=== PATIENT | female | born 2000 | race Caucasian/White ===

== ENCOUNTER 2021-03-27 09:00 | Emergency (ER) | payer OTHER ==
[~2021-03-27] VITALS: Ht 157.5 cm; Wt 64.0 kg
[2021-03-27] MEDS ORDERED: PREN200C PO (09:09)
[2021-03-27] MEDS ORDERED: ACETAMINOPHEN 500 MG TAB PO ONE (09:35)
[2021-03-27 10:44] VITALS: BP 110/55
== END 2021-03-27 11:19 | disposition home or self-care (01) ==
LOC: M ED 09:00
DX: O98.512 Other viral diseases complicating pregnancy, second trimester (principal); U07.1 COVID-19

== ENCOUNTER 2021-06-18 22:31 | Outpatient (CLI) | payer OTHER ==
[~2021-06-18] VITALS: Ht 157.5 cm; Wt 71.5 kg
[~2021-06-18 22:31] MED LIST: PREN200C PO
[2021-06-18 22:53] VITALS: BP 103/51
[2021-06-19 00:07] VITALS: BP 91/52
[2021-06-19 00:47] VITALS: BP 110/64
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
[2021-06-19 04:59] LABS: APPEARANCE, URINE CLEAR (CLEAR); BACTERIA, URINE AUTO 1+ (NEGATIVE); BILIRUBIN, URINE AUTO NEGATIVE (NEGATIVE); BLOOD, URINE BLOOD NEGATIVE (NEGATIVE); COLOR, URINE YELLOW (YELLOW); GLUCOSE, URINE (UA) AUTO 2+ mg/dL (NEGATIVE); KETONE, URINE AUTO TRACE mg/dL (NEGATIVE); LEUKOCYTE ESTERASE, URINE AUTO NEGATIVE (NEGATIVE); NITRITE, URINE AUTO NEGATIVE (NEGATIVE); PROTEIN, URINE AUTO NEGATIVE (NEGATIVE); RBC, URINE AUTO 1 /HPF (0-3); SPECIFIC GRAVITY URINE AUTO 1.012 (1.002-1.035); SQUAMOUS EPITHELIAL CELL UR AU 0 /HPF (0-6); UROBILINOGEN, URINE AUTO 0.2 mg/dL (0.0-2.0); WBC, URINE AUTO 1 /HPF (0-3)
== END 2021-06-19 01:05 | disposition home or self-care (01) ==
LOC: M LDO 22:31
PROVIDERS: ATTEND Obstetrics & Gynecology
DX: O26.893 Other specified pregnancy related conditions, third trimester (principal); Z3A.36 36 weeks gestation of pregnancy; R10.30 Lower abdominal pain, unspecified; O99.343 Other mental disorders complicating pregnancy, third trimester; F41.9 Anxiety disorder, unspecified; F32.9 Major depressive disorder, single episode, unspecified; O99.353 Diseases of the nervous system complicating pregnancy, third trimester; G43.909 Migraine, unspecified, not intractable, without status migrainosus; O99.013 Anemia complicating pregnancy, third trimester; D64.9 Anemia, unspecified; Z62.810 Personal history of physical and sexual abuse in childhood
CPT/HCPCS: 59025; 81001; G0378; G0463

== ENCOUNTER 2021-07-17 01:02 | Outpatient (CLI) | payer OTHER ==
[~2021-07-17] VITALS: Ht 157.5 cm; Wt 75.9 kg
[2021-07-17 02:06] LABS: APPEARANCE, URINE CLEAR (CLEAR); BACTERIA, URINE AUTO 1+ (NEGATIVE); BILIRUBIN, URINE AUTO NEGATIVE (NEGATIVE); BLOOD, URINE BLOOD NEGATIVE (NEGATIVE); COLOR, URINE STRAW (YELLOW); GLUCOSE, URINE (UA) AUTO NEGATIVE (NEGATIVE); KETONE, URINE AUTO NEGATIVE (NEGATIVE); LEUKOCYTE ESTERASE, URINE AUTO 1+ (NEGATIVE); NITRITE, URINE AUTO NEGATIVE (NEGATIVE); PROTEIN, URINE AUTO NEGATIVE (NEGATIVE); RBC, URINE AUTO 1 /HPF (0-3); SPECIFIC GRAVITY URINE AUTO 1.005 (1.002-1.035); SQUAMOUS EPITHELIAL CELL UR AU 2 /HPF (0-6); TRANSITIONAL EPITHELIAL AUTO <1 /HPF; UROBILINOGEN, URINE AUTO 0.2 mg/dL (0.0-2.0); WBC, URINE AUTO 8 /HPF (0-3)
[2021-07-17] MEDS ORDERED: ACETAMINOPHEN 500 MG TAB PO ONE (02:10)
[2021-07-17] MEDS ORDERED: FOSFOMYCIN TROMETHAMINE 3 GM POWDER PACKET (MONUROL) PO ONE (02:15)
--- NOTE | 2021-07-17 03:21 | IPNPDOC ---
Text Note Date of Service The patient was seen on 07/17/21. NOTE Chief Complaint: Ms. Sheldon is a 21 year old at 40+4 weeks gestation presenting to L&D triage for complaints of contractions. Patient presents: spouse HPI: Reports contractions started Sunday evening and increased to every 5 minutes around 2300. States they are painful. Denies any intercourse, but does report orgasms by self to attempt labor. Is reporting increased frequency of urination with burning with urination. Denies any leaking of fluid, vaginal bleeding. Reporting good movement. Denies any headaches, nausea, vomiting, RUQ pain. Denies any vaginal discharge, vaginal itching/burning. Objective: VS: BP initially elevated with repeat 138/73, P76, RR 118, T 99.8 General: Alert. Well-appearing, in no acute distress. Minimal breathing through contractions. PSYCH: Well groomed. Appropriate affect, normal mood. Conversed easily. Neuro: Oriented to time, place, and person. RESP: Unlabored breathing. CV: Normal RRR, no murmur, c/w normal . No edema to bilateral upper and lower extremities. ABD: Soft, non-tender. MSK: legs without edema bilaterally. Normal mvmt all extremities. Steady gait. Judy from a seated position without assistance. Obstetrical: FHR: 125 with moderate variability and accelerations present. No decels. Contractions every 5-6 min, lasting 60-80 sec, moderate to palpation. SVE: 1/thick/high, posterior/firm. Pt has difficulty with vaginal exams. External Genitalia showed no abnormalities, Palliative Nurse present for exam: FRANCIS Rowe L&D Laboratory Tests 07/17/21 01:51: Urine Color STRAW, Urine Appearance CLEAR, Urine pH 6.0, Urine Specific [place] 1.005, Urine Protein NEGATIVE, Urine Glucose (Auto)(UA) NEGATIVE, Urine Ketones (Auto) NEGATIVE, Urine Blood NEGATIVE, Urine Nitrite NEGATIVE, Urine Bilirubin NEGATIVE, Urine Urobilinogen 0.2, Urine Leukocyte Esterase (Auto) 1+H, Urine WBC (Auto) 8H, Urine RBC (Auto) 1, Urine Hyaline Casts (Auto) 0, Urine Bacteria (Auto) 1+H, Urine Squamous Epithelial Cells 2, Urine Transitional Epithelial Cells <1, Urine Sperm (Auto) A/P 21yo G 1 P 0 at 40+4 wks gestation evaluated in L&D triage for complaints of contractions. VSS and normal Benign physical exam Reactive NST, reassuring SVE: 1/thick/high, not in active labor. Labs: UA with bacteria and leuk esterase. Given symptoms, will treat for UTI. Pt with anticipate delivery within the week, so will avoid macrobid. Fosfomycin 3gm given in L&D along with tylenol 1000mg PO for pain. Plan: Educated on routine OB return precautions and warning signs. Follow up on [facility] as previously scheduled. Has IOL scheduled this Sunday. YVONNE CASTELLON CNM Jul 17, 2021 03:21
== END 2021-07-17 02:48 | disposition home or self-care (01) ==
LOC: M LDO 01:02
PROVIDERS: ATTEND Advanced Practice Midwife
DX: O23.43 Unspecified infection of urinary tract in pregnancy, third trimester (principal); Z3A.40 40 weeks gestation of pregnancy; O48.0 Post-term pregnancy

== ENCOUNTER 2021-07-17 07:30 | Inpatient (IN) | payer OTHER ==
[~2021-07-17] VITALS: Ht 157.5 cm; Wt 75.6 kg
[2021-07-17] VITALS (12 sets, daily range): BP systolic 100–136; BP diastolic 55–82
[2021-07-17] MEDS ORDERED: OXYTOCIN DRIP 30 UNITS in IV 1 EA IV PRN ×4 (09:00)
[2021-07-17] MEDS ORDERED: METHYLERGONOVINE MALEATE 0.2 MG/ML VIAL (J2210) IM PRN (09:00)
[2021-07-17] MEDS ORDERED: BUTORPHANOL 2 MG/ML INJ (J0595) IV ONE (09:00)
[2021-07-17] MEDS ORDERED: PROMETHAZINE INJ 25 MG/ML VIAL (J2550) IV ONE (09:00)
[2021-07-17] MEDS ORDERED: CARBOPROST TROMETHAMINE 250 MCG/ML AMP IM PRN (09:00)
[2021-07-17] MEDS ORDERED: TRANEXAMIC ACID INJection 1,000 MG in NS 100 ML IV PRN (09:00)
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
[2021-07-17] MEDS ORDERED: LR 1,000 ML IV SCH (09:20)
[2021-07-17] MEDS ORDERED: OXYTOCIN DRIP 30 UNITS in IV 1 EA IV SCH (09:25)
[2021-07-17 10:06] LABS: HEMATOCRIT 32.2 % (36.0-47.0); HEMOGLOBIN 10.9 g/dl (12.0-15.5); MEAN CORPUSCULAR HGB CONC 33.9 g/dl (32.0-36.5); MEAN CORPUSCULAR VOLUME 82.8 fl (80.0-96.0); PLATELET COUNT, AUTOMATED 224 10^3/uL (150-450); RED BLOOD COUNT 3.89 10^6/uL (4.00-5.40); WHITE BLOOD COUNT 13.6 10^3/uL (4.0-10.0)
[2021-07-17] MEDS ORDERED: FENTANYL 2MCG/ML ROPIVACAINE 0.2% IN 0.9% NACL 100ML IVBAG As Ordered ONE ×2 (11:29→19:41)
[2021-07-17] MEDS: FENTANYL/ROPIVACAINE/NACL BAG 100 ML EPIDURAL SCH ×2 (11:53→19:49)
[2021-07-17] MEDS ORDERED: ePHEDrine SULFATE 25 MG/5 ML(5MG/ML) SYRINGE IV PRN (13:20)
[2021-07-17] MEDS ORDERED: EPIDURAL/PCA KEYS XX PRN (13:20)
[2021-07-17] MEDS ORDERED: EPIDURAL COMMENT XX SCH (13:20)
[2021-07-17] MEDS ORDERED: NALOXONE INJ 0.4MG/1ML VIAL (J2310 PER 1MG) IV PRN (13:20)
[2021-07-17] MEDS ORDERED: REFRIGERATOR IV KEYS XX PRN (13:20)
[2021-07-17] MEDS ORDERED: ONDANSETRON 4MG/2ML VIAL IV PRN (13:20)
[2021-07-17] MEDS ORDERED: diphenhydrAMINE 50MG/ML VIAL (J1200) IV PRN (13:20)
[2021-07-17] MEDS ORDERED: LACTATED RINGER'S 1000 ML IV PRN (13:20)
--- NOTE | 2021-07-17 13:52 | IPNPDOC ---
Obstetrical Progress Note Date of Service Jul 17, 2021 Subjective Patient is about ready to take a nap. Comfortable with epidural. Denies complaints. Objective Vital Signs Date Time Temp Pulse Resp B/P (MAP) Pulse Ox O2 Delivery O2 Flow Rate FiO2 07/17/21 09:59 80 16 100/55 (70) Room Air 07/17/21 07:50 99.3 Assessment Heart Rate Tracing: Category I Tocometer Contractions: Yes Frequency: regular, every 2-5 min. Sterile Vaginal Examination Dilation: 3 cm Assessment and Plan Status: Reassuring Group B Streptococcus: Negative Anticipate: Vaginal Delivery Additional Comments Patient was checked by nursing and found to be unchanged since admission. Discussed augmentation with pitocin and patient is amenable. Routine intrapartum care titrate pitocin reevaluate in 6 hours or sooner ELVIA Simms DO Jul 17, 2021 13:52
[2021-07-17] MEDS ORDERED: OXYTOCIN 30 UNITS IN 0.9% NaCl 500ML IV BAG (J2590) As Ordered ONE (15:45)
--- NOTE | 2021-07-17 18:24 | IPNPDOC ---
Obstetrical Progress Note Date of Service Jul 17, 2021 Subjective Patient comfortable with epidural. Denies complaints. Objective Vital Signs Date Time Temp Pulse Resp B/P (MAP) Pulse Ox O2 Delivery O2 Flow Rate FiO2 07/17/21 09:59 80 16 100/55 (70) Room Air 07/17/21 07:50 99.3 Assessment Heart Rate (FHR): 145 Variability: Moderate Accelerations: Positive Decelerations: None Heart Rate Tracing: Category I Tocometer Contractions: Yes Frequency: regular, every 2-5 min. Sterile Vaginal Examination Dilation: 7 cm Postion/Presentation: Cephalic presentation Assessment and Plan Status: Reassuring Group B Streptococcus: Negative Anticipate: Vaginal Delivery Additional Comments Per nursing pt has progressed to 7cm. Has occasional FH tracing decelerations but overall reassuring tracing and currently category I. Pitocin is at 2, maternal vitals within limits. She is likely ruptured with a forebag. If labor progress slows can consider rupture of forebag. Will continue to monitor, deliver. reevaluate labor in 2-4 hours, sooner prn routine intrapartum care ELVIA FITZGERALD DO Jul 17, 2021 18:24
--- NOTE | 2021-07-17 22:35 | IPNPDOC ---
Obstetrical Progress Note Date of Service Jul 17, 2021 Subjective Pt comfortable with epidural, feeling pressure with some contractions, not consistently. Objective Vital Signs Date Time Temp Pulse Resp B/P (MAP) Pulse Ox O2 Delivery O2 Flow Rate FiO2 07/17/21 09:59 80 16 100/55 (70) Room Air 07/17/21 07:50 99.3 Assessment Heart Rate (FHR): 145 Variability: Moderate Accelerations: Positive Decelerations: None Heart Rate Tracing: Category I Tocometer Contractions: Yes Frequency: every 2-5 min. Sterile Vaginal Examination Dilation: 8 cm Assessment and Plan Status: Reassuring Group B Streptococcus: Negative Anticipate: Vaginal Delivery Additional Comments Category I tracing continuing to progress, now 8cm. Continuing on pit of 2. Mother afebrile, normotensive. Routine intrapartum care. Reevaluate labor in 4 hours or sooner ELVIA Simms DO Jul 17, 2021 22:35
--- NOTE | 2021-07-17 23:47 | IPNPDOC ---
Obstetrical Progress Note Date of Service Jul 17, 2021 Subjective Pt comfortable with epidural, feeling pressure with contractions. Denies other complaints. Objective Vital Signs Date Time Temp Pulse Resp B/P (MAP) Pulse Ox O2 Delivery O2 Flow Rate FiO2 07/17/21 09:59 80 16 100/55 (70) Room Air 07/17/21 07:50 99.3 Assessment Heart Rate (FHR): 150 Variability: Moderate Accelerations: Positive Decelerations: None Heart Rate Tracing: Category I Tocometer Contractions: Yes Frequency: every 2-5 min. 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 , rupture of membranes performed with large return of clear fluid. It is possible that this was a forebag as patient reports leaking prior; however I will now consider her ruptured. Revaluate labor in 2-4 hours or sooner prn. Routine intrapartum care. ELVIA FITZGERALD DO Jul 17, 2021 23:47
[2021-07-18] VITALS (25 sets, daily range): BP systolic 92–158; BP diastolic 51–109
--- NOTE | 2021-07-18 03:46 | IPNPDOC ---
Obstetrical Progress Note Date of Service Jul 18, 2021 Subjective Patient currently pushing, pushing started at 0230. Objective Vital Signs Date Time Temp Pulse Resp B/P (MAP) Pulse Ox O2 Delivery O2 Flow Rate FiO2 07/17/21 09:59 80 16 100/55 (70) Room Air 07/17/21 07:50 99.3 Assessment Heart Rate (FHR): 150 Variability: Moderate Accelerations: Positive Decelerations: Late, Intermittent Heart Rate Tracing: Category II Tocometer Contractions: Yes Frequency: regular, every 2-5 min. Sterile Vaginal Examination Dilation: complete Effacement (%): 100% Station: +1 Postion/Presentation: Cephalic presentation Assessment and Plan Status: Reassuring Group B Streptococcus: Negative Anticipate: Vaginal Delivery Additional Comments Has been pushing for about an hour, station currently +1, making slow progress. Suboptimal effort at this time, multiple nurses at bedside assisting in coaching and encouragement. Maternal vitals within normal limits, FHR reassuring. Continue pushing reevaluate in one hour or sooner prn routine intrapartum care ELVIA FITZGERALD DO Jul 18, 2021 03:46
[2021-07-18 05:53] LABS: CORD GAS ABE V -6.5; CORD GAS HCO3 V 17.6 MEQ/L; CORD GAS O2 SAT V 81.1 %; CORD GAS PCO2 V 31.3 mmHg; CORD GAS PH V 7.368 UNITS; CORD GAS SBC V 18.9 MEQ/L; CORD GAS TCO2 V 18.6 MEQ/L
[2021-07-18 05:55] LABS: CORD GAS HCO3 A 17.4 MEQ/L; CORD GAS O2 SAT A 42.2 %; CORD GAS PCO2 A 43.5 mmHg; CORD GAS PH A 7.219 UNITS; CORD GAS SBC A 15.5 MEQ/L; CORD GAS TCO2 A 18.7 MEQ/L
[2021-07-18] MEDS: ACETAMINOPHEN 500 MG TAB PO SCH ×4 (06:00→23:22)
[2021-07-18] MEDS ORDERED: LR 1,000 ML IV SCH (06:00)
[2021-07-18] MEDS ORDERED: METHYLERGONOVINE MALEATE 0.2 MG TAB PO PRN (06:00)
[2021-07-18] MEDS ORDERED: RHOGAM 300 MCG (1500 IU) INJ (J2790) IM SCH (06:00)
[2021-07-18] MEDS ORDERED: PROMETHAZINE 25 MG TAB PO PRN (06:00)
[2021-07-18] MEDS ORDERED: ONDANSETRON 4MG/2ML VIAL IV PRN (06:00)
[2021-07-18] MEDS ORDERED: MEASLES,MUMPS,RUBELLA VACCINE INJ (MMR-II) (90707) SC SCH (06:00)
--- NOTE | 2021-07-18 06:16 | DNPDOC ---
[facility] Delivery Note Delivery Note DATE OF DELIVERY: [id number] PREDELIVERY DIAGNOSIS: 40+4 weeks' gestation and labor. POST DELIVERY DIAGNOSIS: Delivered. PROCEDURE: Spontaneous vaginal delivery MACHINE TANK OPERATOR: Elvia Wahl DO ANESTHESIA: epidural ESTIMATED BLOOD LOSS: 300 mL. FINDINGS: 8 pound 10 ounce 3910g , Score 8/9 DELIVERY SUMMARY: Zamzam Sheldon is a 21-year-old 1 now para 1001 who was admitted to labor and delivery for labor. I was called to the room as she was C/C/+3; I had previously been pushing with the patient intermittently. In general maternal pushing effort was suboptimal and progress was slow yet persistent. The heart rate tracing remained category I throughout [facility]. The baby delivered about to the browline and the mother repeatedly asked for assistance in delivery due to slowed progress and exhaustion. I inserted two fingers rectally and located the baby's chin. With each contraction gentle outward pressure was applied until delivery of the head. The head restituted SONYA. Initially I was concerned for a shoulder dystocia however the culprit was a body dystocia and lack of maternal pushing effort. I was able to deliver both shoulders with gentle directed traction. I placed finger around each armpit and extracted the corpus in this manner. The was placed on the maternal abdomen. THe cord was clamped and cut. Good cry was noted. The placenta was then delivered intact and uterine massage performed with fundus and lower uterine segment firm. Inspection of the perineum revealed no tears. The mother and baby were left in good condition. ELVIA WAHL DO Jul 18, 2021 06:16
[2021-07-18] MEDS: PRENATAL VITAMINS CHEWABLE TABLET PO SCH (07:33)
[2021-07-18] MEDS: IBUPROFEN 800 MG TAB PO SCH ×3 (07:33→21:36)
[2021-07-18] MEDS ORDERED: LR 1,000 ML IV ONE (08:40)
[2021-07-18] MEDS: DOCUSATE SODIUM 100MG CAPSULE PO PRN ×2 (09:11→09:18)
[2021-07-18] MEDS: DIBUCAINE 1% OINTMENT 30GM TOP PRN ×2 (09:11→09:19)
--- NOTE | 2021-07-18 09:20 | IPNPDOC ---
Obstetrical Progress Note Date of Service Jul 18, 2021 Subjective 21 yo s/p this morning becomes lightheaded, dizzy, nausea, and fee ling faint when she stands to use the restroom. EBL from delivery 300 ml. She reports that bleeding has been normal. She denies chest pain, RUQ pain, and visual changes. Objective Laboratory Tests 07/17/21 09:31 Vital Signs Date Time Temp Pulse Resp B/P (MAP) Pulse Ox O2 Delivery O2 Flow Rate FiO2 07/18/21 08:32 134 92/51 (65) 07/18/21 07:38 97.7 16 07/17/21 09:59 Room Air Orthostatic BPs: Layin/62 Pulse: 70 Sittin/67 Pulse: 131 Standin/51 Pulse: 134 Assessment and Plan Additional Comments Assessment: Day of delivery Orthostatic hypotension Plan: Await stat CBC, CMP Bolus 1 liter LR Type and Crossmatch for 2 units Consider blood transfusion Dr. Gutiérrez updated on patient status and agrees with plan. JUAN RAJAN CNM Jul 18, 2021 09:20
[2021-07-18 09:25] LABS: HEMOGLOBIN 10.2 g/dl (12.0-15.5); MEAN CORPUSCULAR HEMOGLOBIN 28.2 pg (27.0-33.0); MEAN CORPUSCULAR HGB CONC 32.9 g/dl (32.0-36.5); MEAN CORPUSCULAR VOLUME 85.6 fl (80.0-96.0); PLATELET COUNT, AUTOMATED 217 10^3/uL (150-450); RED BLOOD COUNT 3.62 10^6/uL (4.00-5.40); WHITE BLOOD COUNT 21.4 10^3/uL (4.0-10.0)
[2021-07-18 10:02] LABS: BLOOD UREA NITROGEN 6 MG/DL (7-18); CALCIUM LEVEL 8.8 MG/DL (8.5-10.1); CARBON DIOXIDE LEVEL 20 MEQ/L (21-32); CHLORIDE LEVEL 112 MEQ/L (98-107); CREATININE FOR GFR 1.19 MG/DL (0.55-1.30); GLUCOSE, FASTING 198 MG/DL (70-100); POTASSIUM SERUM 3.8 MEQ/L (3.5-5.1); SODIUM LEVEL 142 MEQ/L (136-145)
[2021-07-18 10:03] LABS: ALBUMIN 2.2 GM/DL (3.2-5.2); ALT/SGPT 21 U/L (12-78); BILIRUBIN,TOTAL 0.5 MG/DL (0.2-1.0); TOTAL PROTEIN 5.1 GM/DL (6.4-8.2)
--- NOTE | 2021-07-18 10:40 | IPNPDOC ---
Obstetrical Progress Note Date of Service Jul 18, 2021 Subjective 21 yo s/p this morning has now received 2 liters of LR and is now able to stand and walk without assistance without feeling lightheadedness, dizzy, and faint. BP is mildly elevated and she has had mildly elevated BP during course of labor and has ruled in for GHTN. Labs have been WNL. Objective Vital Signs Date Time Temp Pulse Resp B/P (MAP) Pulse Ox O2 Delivery O2 Flow Rate FiO2 07/18/21 09:30 97.7 66 16 128/60 (82) 99 07/17/21 09:59 Room Air Assessment and Plan Additional Comments Assessment: S/P Day of Delivery GHTN Plan: Transfer to Monitor VS every [address] Gutiérrez updated on patient status and is agreeable to plan JUAN RAJAN CNM Jul 18, 2021 10:40
--- NOTE | 2021-07-18 17:57 | IPNPDOC ---
Progress Note Date of Service: Jul 18, 2021 Progress Note Reviewed labs, patient is meeting criteria for pre-eclampsia with severe features (GHTN + Cr 1.19). At this time she denied n/v/d, cp, sob, [place], visual changes, f/c, RUQ pain, urinary sx. She is now normotensive. I discussed the recommendation of magnesium for seizure prevention for the first 24 hours after delivery. She declines this and asked for her lab to be repeated first, I explained that this is against my medical advice, although given she is asymptomatic with normal BPs this is not totally unreasonable. Will repeat pre-e labs STAT and put patient on seizure precautions and a clear liquid diet in the interm. VS, I&O, 24H, Fishbone Vital Signs/I&O Vital Signs Date Time Temp Pulse Resp B/P (MAP) Pulse Ox O2 Delivery O2 Flow Rate FiO2 07/18/21 11:11 97.2 70 18 111/57 (75) 99 Room Air I&O- Last 24 Hours up to 6 AM 07/18/21 06:00 Intake Total 2855 ml Output Total 1284 ml Balance 1571 ml Laboratory Data 24H LABS Laboratory Tests 2 07/18/21 05:44: Cord Arterial Blood pH 7.219, Cord Arterial Blood PCO2 43.5, Cord Arterial Blood PO2 20.0, Cord Arterial Blood HCO3 17.4, Cord Arterial Blood Total CO2 18.7, Cord Arterial Blood Base Excess -10.0, Cord Arterial Base Excess (Standard 15.5, Cord Arterial Bld Oxygen Saturation 42.2 07/18/21 05:46: Cord Venous Blood pH 7.368, Cord Venous Blood PCO2 31.3, Cord Venous Blood PO2 36.0, Cord Venous Blood HCO3 17.6, Cord Venous Blood Total CO2 18.6, Cord Venous Base Excess (Actual) -6.5, Cord Venous Base Excess (Standard) 18.9, Cord Venous Blood Oxygen Saturation 81.1 07/18/21 09:20: Anion Gap 10, Calcium Level 8.8, Total Bilirubin 0.5, Aspartate Amino Transf (AST/SGOT) 34, Alanine Aminotransferase (ALT/SGPT) 21, Alkaline Phosphatase 204H, Total Protein 5.1L, Albumin 2.2L, Albumin/Globulin Ratio 0.8L 07/18/21 09:21: Nucleated Red Blood Cells % (auto) 0.0 CBC/BMP Laboratory Tests 07/18/21 09:20 07/18/21 09:21 MELISSA LOPEZ DO Jul 18, 2021 17:57
[2021-07-18 18:39] LABS: HEMATOCRIT 25.7 % (36.0-47.0); HEMOGLOBIN 8.5 g/dl (12.0-15.5); MEAN CORPUSCULAR HEMOGLOBIN 28.1 pg (27.0-33.0); MEAN CORPUSCULAR HGB CONC 33.1 g/dl (32.0-36.5); MEAN CORPUSCULAR VOLUME 84.8 fl (80.0-96.0); PLATELET COUNT, AUTOMATED 204 10^3/uL (150-450); RED BLOOD COUNT 3.03 10^6/uL (4.00-5.40); WHITE BLOOD COUNT 19.5 10^3/uL (4.0-10.0)
[2021-07-18 19:03] LABS: ALBUMIN 1.8 GM/DL (3.2-5.2); ALT/SGPT 20 U/L (12-78); BILIRUBIN,TOTAL 0.3 MG/DL (0.2-1.0); BLOOD UREA NITROGEN 5 MG/DL (7-18); CALCIUM LEVEL 8.6 MG/DL (8.5-10.1); CARBON DIOXIDE LEVEL 21 MEQ/L (21-32); CHLORIDE LEVEL 113 MEQ/L (98-107); CREATININE FOR GFR 0.89 MG/DL (0.55-1.30); GLUCOSE, FASTING 138 MG/DL (70-100); POTASSIUM SERUM 3.8 MEQ/L (3.5-5.1); SODIUM LEVEL 144 MEQ/L (136-145); TOTAL PROTEIN 4.4 GM/DL (6.4-8.2)
--- NOTE | 2021-07-18 19:56 | IPNPDOC ---
Progress Note Date of Service: Jul 18, 2021 Progress Note On repeat labs Cr improved from 1.19 to 0.89. At this time she still declines magnesium still per RN. Will continue seizure precautions and repeat labs in the AM. VS, I&O, 24H, Kandice Vital Signs/I&O Vital Signs Date Time Temp Pulse Resp B/P (MAP) Pulse Ox O2 Delivery O2 Flow Rate FiO2 07/18/21 18:06 98.2 73 18 104/57 (73) 99 Room Air I&O- Last 24 Hours up to 6 AM 07/18/21 06:00 Intake Total 2855 ml Output Total 1284 ml Balance 1571 ml Laboratory Data 24H LABS Laboratory Tests 2 07/18/21 05:44: Cord Arterial Blood pH 7.219, Cord Arterial Blood PCO2 43.5, Cord Arterial Blood PO2 20.0, Cord Arterial Blood HCO3 17.4, Cord Arterial Blood Total CO2 18.7, Cord Arterial Blood Base Excess -10.0, Cord Arterial Base Excess (Standard 15.5, Cord Arterial Bld Oxygen Saturation 42.2 07/18/21 05:46: Cord Venous Blood pH 7.368, Cord Venous Blood PCO2 31.3, Cord Venous Blood PO2 36.0, Cord Venous Blood HCO3 17.6, Cord Venous Blood Total CO2 18.6, Cord Venous Base Excess (Actual) -6.5, Cord Venous Base Excess (Standard) 18.9, Cord Venous Blood Oxygen Saturation 81.1 07/18/21 09:20: Anion Gap 10, Calcium Level 8.8, Total Bilirubin 0.5, Aspartate Amino Transf (A ST/SGOT) 34, Alanine Aminotransferase (ALT/SGPT) 21, Alkaline Phosphatase 204H, Total Protein 5.1L, Albumin 2.2L, Albumin/Globulin Ratio 0.8L 07/18/21 09:21: Nucleated Red Blood Cells % (auto) 0.0 07/18/21 18:07: Nucleated Red Blood Cells % (auto) 0.0, Anion Gap 10, Calcium Level 8.6, Total Bilirubin 0.3, Aspartate Amino Transf (AST/SGOT) 31, Alanine Aminotransferase (ALT/SGPT) 20, Alkaline Phosphatase 177H, Total Protein 4.4L, Albumin 1.8L, Albumin/Globulin Ratio 0.7L CBC/BMP Laboratory Tests 07/18/21 09:20 07/18/21 09:21 07/18/21 18:07 MELISSA LOPEZ DO Jul 18, 2021 19:56
[2021-07-19 02:00] VITALS: BP 100/54
[2021-07-19 05:30] VITALS: BP 101/62
[2021-07-19] MEDS: ACETAMINOPHEN 500 MG TAB PO SCH ×4 (05:36→23:53)
[2021-07-19] MEDS: IBUPROFEN 800 MG TAB PO SCH ×3 (05:37→21:42)
--- NOTE | 2021-07-19 06:52 | IPNPDOC ---
Progress Note Date of Service: Jul 19, 2021 Day#: 1 Progress Note SUBJECT: Ms. Sheldon is a 21yo PPD1 after a . Her is c/b pre- eclampsia with severe features (Cr 1.19) although she refused magnesium, repeat Cr 0.89. Pre-eclampsia labs otherwise normal. She also had an episode of near syncope and received 2L after delivery, her H/H was 8.5/25 and a repeat CBC is ordered for this morning. She has been ambulating, voiding spontaneously without issue and tolerating regular diet. Breast feeding without issue. Reports lochia is less than a normal period. Patient is ambulating well. Reports some cramping with . Denies any pain. Voiding and passing flatus without difficulty. Denied n/v/d, cp, whitmore, visual changes, abd pain, f/c, urinary sx. She does endorse some mild shortness of breath when ambulates. OBJECTIVE: VITAL SIGNS: Within normal limits, afebrile. Alert and oriented times three. No increased WOB Heart rate: non-tachycardic Abdomen: Fundus firm at U-2. Soft, NTTP. [Minimal] lochia per patient Extrem DTR 2+, no clonus, neg homans ASSESSMENT: Ms. Sheldon is a21yo PPD1 after a . Her is c/b pre-eclampsia with severe features (Cr 1.19) although she refused magnesium, repeat Cr 0.89. Pre-eclampsia labs otherwise normal. She also had an episode of near syncope and received 2L after delivery, her H/H was 8.5/25. Vitals within normal limits (normotensive), afebrile, hemodynamically stable with no evidence of infection. She denied signs or symptoms of pre-eclampsia. She does have some mild SOB with ambulating and a repeat CBC was drawn this morning. PLAN: 1. Discharge to home likely PPD2-3 2. Tylenol and Motrin for pain. 3. Encourage breast feeding and ambulation. 4. Undecided contraception. 5. Routine PP visit in 72h, 7d, and 6 weeks in clinic. 6. Discussed return precautions at length (pre-eclampsia, routine ) and activity limitations (pelvic rest). 7. Follow up on AM labs. VS, I&O, 24H, Fishbone Vital Signs/I&O Vital Signs Date Time Temp Pulse Resp B/P (MAP) Pulse Ox O2 Delivery O2 Flow Rate FiO2 07/19/21 05:30 98.2 70 16 101/62 (75) 99 Room Air I&O- Last 24 Hours up to 6 AM 07/19/21 06:00 Output Total 900 ml Balance -900 ml Laboratory Data 24H LABS Laboratory Tests 2 07/18/21 09:20: Anion Gap 10, Calcium Level 8.8, Total Bilirubin 0.5, Aspartate Amino Transf (AST/SGOT) 34, Alanine Aminotransferase (ALT/SGPT) 21, Alkaline Phosphatase 204H, Total Protein 5.1L, Albumin 2.2L, Albumin/Globulin Ratio 0.8L 07/18/21 09:21: Nucleated Red Blood Cells % (auto) 0.0 07/18/21 18:07: Anion Gap 10, Calcium Level 8.6, Total Bilirubin 0.3, Aspartate Amino Transf (AST/SGOT) 31, Alanine Aminotransferase (ALT/SGPT) 20, Alkaline Phosphatase 177H, Total Protein 4.4L, Albumin 1.8L, Albumin/Globulin Ratio 0.7L, Nucleated Red Blood Cells % (auto) 0.0 CBC/BMP Laboratory Tests 07/18/21 09:20 07/18/21 09:21 07/18/21 18:07 MELISSA LOPEZ DO Jul 19, 2021 06:52
[2021-07-19 08:03] LABS: HEMATOCRIT 24.8 % (36.0-47.0); HEMOGLOBIN 8.3 g/dl (12.0-15.5); MEAN CORPUSCULAR HEMOGLOBIN 28.3 pg (27.0-33.0); MEAN CORPUSCULAR HGB CONC 33.5 g/dl (32.0-36.5); MEAN CORPUSCULAR VOLUME 84.6 fl (80.0-96.0); PLATELET COUNT, AUTOMATED 198 10^3/uL (150-450); RED BLOOD COUNT 2.93 10^6/uL (4.00-5.40); WHITE BLOOD COUNT 14.3 10^3/uL (4.0-10.0)
[2021-07-19 08:33] LABS: ALBUMIN 1.7 GM/DL (3.2-5.2); ALT/SGPT 22 U/L (12-78); BILIRUBIN,TOTAL 0.3 MG/DL (0.2-1.0); BLOOD UREA NITROGEN 6 MG/DL (7-18); CALCIUM LEVEL 8.1 MG/DL (8.5-10.1); CARBON DIOXIDE LEVEL 22 MEQ/L (21-32); CHLORIDE LEVEL 112 MEQ/L (98-107); CREATININE FOR GFR 0.73 MG/DL (0.55-1.30); GLUCOSE, FASTING 71 MG/DL (70-100); POTASSIUM SERUM 3.7 MEQ/L (3.5-5.1); SODIUM LEVEL 143 MEQ/L (136-145); TOTAL PROTEIN 4.3 GM/DL (6.4-8.2)
[2021-07-19] MEDS: PRENATAL VITAMINS CHEWABLE TABLET PO SCH (08:54)
[2021-07-19 10:00] VITALS: BP 122/61
[2021-07-19 14:00] VITALS: BP 134/78
[2021-07-19 18:00] VITALS: BP 126/88
[2021-07-19 22:00] VITALS: BP 132/60
[2021-07-20 02:00] VITALS: BP 115/53
[2021-07-20] MEDS: IBUPROFEN 800 MG TAB PO SCH (05:07)
[2021-07-20] MEDS: ACETAMINOPHEN 500 MG TAB PO SCH ×2 (05:07→12:00)
[2021-07-20 06:00] VITALS: BP 122/56
--- NOTE | 2021-07-20 07:08 | IPNPDOC ---
Progress Note Date of Service: Jul 20, 2021 Progress Note SUBJECT: Ms. Sheldon is a 21yo PPD2 after a . Her is c/b pre- eclampsia with severe features (Cr 1.19) although she refused magnesium, repeat Cr 0.89. Pre-eclampsia labs otherwise normal. She also had an episode of near syncope and received 2L after delivery, her H/H was 8.5/25 and a repeat CBC was stable. She has been ambulating, voiding spontaneously without issue and tolerating regular diet. Breast feeding without issue. Reports lochia is less than a normal period. Patient is ambulating well. Reports some cramping with . Denies any pain. Voiding and passing flatus without difficulty. Denied n/v/d, cp, whitmore, visual changes, abd pain, f/c, urinary sx. Feels well and has no complaints. OBJECTIVE: VITAL SIGNS: Within normal limits, afebrile. Alert and oriented times three. No increased WOB Heart rate: non-tachycardic Abdomen: Fundus firm at U-2. Soft, NTTP. [Minimal] lochia per patient Extrem negative calf tenderness bilaterally ASSESSMENT: Ms. Sheldon is a21yo PPD2 after a . Her is c/b pre-eclampsia with severe features (Cr 1.19) although she refused magnesium, repeat Cr 0.89. Pre-eclampsia labs otherwise normal. She also had an episode of near syncope and received 2L after delivery, her H/H was 8.5/25. Vitals within normal limits (normotensive), afebrile, hemodynamically stable with no evidence of infection. She denied signs or symptoms of pre-eclampsia. PLAN: 1. Discharge to home today 2. Tylenol and Motrin for pain. 3. Encourage breast feeding and ambulation. 4. decline contraception at this time, counseled on close interval . 5. Routine PP visit in 72h, 7d, and 6 weeks in clinic. 6. Discussed return precautions at length (pre-eclampsia, routine ) and activity limitations (pelvic rest). VS, I&O, 24H, Fishbone Vital Signs/I&O Vital Signs Date Time Temp Pulse Resp B/P (MAP) Pulse Ox O2 Delivery O2 Flow Rate FiO2 07/20/21 06:00 97.9 65 18 122/56 (78) 97 Room Air Laboratory Data 24H LABS Laboratory Tests 2 07/19/21 07:26: Nucleated Red Blood Cells % (auto) 0.0, Anion Gap 9, Calcium Level 8.1L, Total Bilirubin 0.3, Aspartate Amino Transf (AST/SGOT) 30, Alanine Aminotransferase (ALT/SGPT) 22, Alkaline Phosphatase 167H, Total Protein 4.3L, Albumin 1.7L, Albumin/Globulin Ratio 0.7L CBC/BMP Laboratory Tests 07/19/21 07:26 ELVIA FITZGERALD DO Jul 20, 2021 06:58
[2021-07-20] MEDS ORDERED: IBUP80TA PO (07:12)
[2021-07-20] MEDS ORDERED: PRENCHW PO (07:12)
[2021-07-20] MEDS ORDERED: DOCU100C16 PO (07:12)
[2021-07-20] MEDS ORDERED: ACET-683 PO (07:12)
[2021-07-20] MEDS: PRENATAL VITAMINS CHEWABLE TABLET PO SCH (08:13)
--- NOTE | 2021-07-21 09:42 | IPN ---
PROGRESS NOTE DATE: 07/19/2021 This patient requested circumcision of her male . After discussing risks and benefits of circumcision, the medical and non-medical indications, penile block and aftercare expressed understanding of penile block, aftercare and bleeding, signed a consent form. All questions were answered. Twenty minute discussion. We await clearance by the heavy equipment supervisor. Onel Edwards OB
== END 2021-07-20 12:55 | disposition home or self-care (01) | DRG 807 ==
LOC: M LDO 07:30 → M LDI 08:53 → M OBS 07-18 10:50
PROVIDERS: ADMIT Obstetrics & Gynecology; ATTEND Obstetrics & Gynecology
PROC: 10E0XZZ Delivery of Products of Conception, External Approach (ICD-10-PCS; principal; 2021-07-18)
DX: O14.24 HELLP syndrome, complicating childbirth (principal); Z37.0 Single live birth; Z3A.40 40 weeks gestation of pregnancy; O75.81 Maternal exhaustion complicating labor and delivery; O48.0 Post-term pregnancy

== ENCOUNTER 2022-08-22 08:23 | Inpatient (IN) | payer OTHER ==
[~2022-08-22] VITALS: Ht 157.5 cm; Wt 75.0 kg
[2022-08-22] VITALS (42 sets, daily range): BP systolic 94–134; BP diastolic 53–81
[~2022-08-22 08:23] MED LIST changes: +ACET-683 PO; +DOCU100C16 PO; +IBUP80TA PO; +PRENCHW PO
[2022-08-22] MEDS ORDERED: OXYTOCIN INJ 10 UNITS/ML VIAL (J2590) IV PRN (09:45)
[2022-08-22] MEDS ORDERED: OXYTOCIN DRIP 30 UNITS in IV 1 EA IV PRN ×6 (09:45)
[2022-08-22] MEDS ORDERED: LIDOCAINE 1% MDV 20ML VIAL INFIL PRN (09:45)
[2022-08-22] MEDS ORDERED: OXYTOCIN INJ 10 UNITS/ML VIAL (J2590) IM PRN (09:45)
[2022-08-22] MEDS ORDERED: CARBOPROST TROMETHAMINE 250 MCG/ML AMP IM PRN (09:45)
[2022-08-22] MEDS ORDERED: TRANEXAMIC ACID INJection 1,000 MG in NS 100 ML IV PRN (09:45)
[2022-08-22] MEDS ORDERED: METHYLERGONOVINE MALEATE 0.2 MG/ML VIAL (J2210) IM PRN (09:45)
[2022-08-22 09:46] LABS: HEMATOCRIT 32.3 % (36.0-47.0); HEMOGLOBIN 10.6 g/dl (12.0-15.5); MEAN CORPUSCULAR HEMOGLOBIN 28.4 pg (27.0-33.0); MEAN CORPUSCULAR HGB CONC 32.8 g/dl (32.0-36.5); MEAN CORPUSCULAR VOLUME 86.6 fl (80.0-96.0); PLATELET COUNT, AUTOMATED 160 10^3/uL (150-450); RED BLOOD COUNT 3.73 10^6/uL (4.00-5.40); WHITE BLOOD COUNT 7.7 10^3/uL (4.0-10.0)
[2022-08-22] MEDS ORDERED: HOME MED LIST COMPLETE! XX SCH (09:55)
[2022-08-22] MEDS ORDERED: OXYTOCIN DRIP 30 UNITS in IV 1 EA IV SCH ×5 (10:10→21:05)
[2022-08-22] MEDS: LR 1,000 ML IV SCH ×2 (10:32→19:17)
[2022-08-22] MEDS ORDERED: LR 500 ML IV PRN (17:00)
[2022-08-22] MEDS ORDERED: diphenhydrAMINE 50MG/ML VIAL IV PRN (17:00)
[2022-08-22] MEDS ORDERED: EPIDURAL/PCA KEYS XX PRN (17:00)
[2022-08-22] MEDS ORDERED: ONDANSETRON 4MG 2ML VIAL IV PRN (17:00)
[2022-08-22] MEDS ORDERED: NALOXONE INJ 0.4MG/1ML VIAL (J2310 PER 1MG) IV PRN (17:00)
[2022-08-22] MEDS ORDERED: ePHEDrine SULFATE 25 MG/5 ML(5MG/ML) SYRINGE IVP PRN (17:00)
[2022-08-22] MEDS ORDERED: FENTANYL/ROPIVACAINE/NACL BAG 100 ML EPIDURAL SCH (17:00)
[2022-08-22] MEDS ORDERED: FENTANYL 2MCG/ML ROPIVACAINE 0.2% IN 0.9% NACL 100ML IVBAG As Ordered ONE (17:01)
[2022-08-22] MEDS ORDERED: DIBUCAINE 1% OINTMENT 30GM TOP PRN (21:05)
[2022-08-22] MEDS ORDERED: DOCUSATE SODIUM 100MG CAPSULE PO PRN (21:05)
[2022-08-22] MEDS ORDERED: IBUPROFEN 600MG TAB PO PRN (21:05)
[2022-08-22] MEDS ORDERED: ACETAMINOPHEN TAB 650MG DOSE (2X325MG) PO PRN (21:05)
[2022-08-22] MEDS ORDERED: METHYLERGONOVINE MALEATE 0.2 MG TAB PO PRN (21:05)
[2022-08-23] MEDS: CLOTRIMAZOLE 1% TOPICAL CREAM 30GM TOP SCH ×4 (03:47→20:07)
[2022-08-23 06:00] VITALS: BP 108/53
[2022-08-23] MEDS: PRENATAL VITAMINS CHEWABLE TABLET PO SCH (07:44)
[2022-08-23] MEDS: ACETAMINOPHEN 500 MG TAB PO PRN ×2 (07:44→16:58)
[2022-08-23] MEDS ORDERED: CLOTRIMAZOLE 1% TOPICAL CREAM 30GM TOP SCH (09:00)
[2022-08-23] MEDS: LR 1,000 ML IV SCH ×2 (09:45→17:45)
[2022-08-23] MEDS: IBUPROFEN 800 MG TAB PO PRN ×2 (11:50→20:05)
[2022-08-23 18:00] VITALS: BP 117/61
[2022-08-24] MEDS: IBUPROFEN 800 MG TAB PO PRN (04:43)
[2022-08-24 06:00] VITALS: BP 103/53
[2022-08-24] MEDS ORDERED: BOOSTRIX/ADACEL VACCINE (DIPHTH/PERTUSS/ACELL/TETANUS) 0.5ML SYR IM.IMMUN ONE (09:00)
[2022-08-24] MEDS ORDERED: MEASLES,MUMPS,RUBELLA VACCINE INJ (MMR-II) (90707) SC.IMMUN ONE (09:00)
[2022-08-24] MEDS: CLOTRIMAZOLE 1% TOPICAL CREAM 30GM TOP SCH (09:38)
[2022-08-24] MEDS: PRENATAL VITAMINS CHEWABLE TABLET PO SCH (09:38)
== END 2022-08-24 11:50 | disposition home or self-care (01) | DRG 807 ==
LOC: M LDI 08:23 → M OBS 08-23 04:22
PROVIDERS: ADMIT Advanced Practice Midwife; ATTEND Advanced Practice Midwife
PROC: 10E0XZZ Delivery of Products of Conception, External Approach (ICD-10-PCS; principal; 2022-08-22)
PROC: 3E0DXGC Introduction of Other Therapeutic Substance into Mouth and Pharynx, External Approach (ICD-10-PCS; 2022-08-22)
PROC: 3E033VJ Introduction of Other Hormone into Peripheral Vein, Percutaneous Approach (ICD-10-PCS; 2022-08-22)
DX: O36.5910 Maternal care for other known or suspected poor fetal growth, first trimester, not applicable or unspecified (principal); Z37.0 Single live birth; Z3A.38 38 weeks gestation of pregnancy